=== PATIENT | male | born 1970 | race Caucasian/White ===

== ENCOUNTER → 2018-01-14 | Outpatient (CLI) | payer OTHER ==
[~2018-01-14] MED LIST: CEFA500ER; HYDACE5; NAPR550 PO; Norco 5-325 Ta1 EACH PO; SULTRIDS PO; WARF5
== END ==
LOC: PLD 07:42 → LAB SHORT 07:42
DX: D22.4 Melanocytic nevi of scalp and neck (principal); D22.5 Melanocytic nevi of trunk
CPT/HCPCS: 88305

== ENCOUNTER 2022-08-05 08:08 | Observation (INO) | payer BC ==
[~2022-08-05] VITALS: Ht 177.8 cm; Wt 117.9 kg
[2022-08-05 09:00] LABS: BASOPHILS ABSOLUTE AUTO 0.02 K/mm3 (0.00-0.23); BASOPHILS PERCENT AUTO 0 % (0-2); EOSINOPHILS ABSOLUTE AUTO 0.02 K/mm3 (0.00-0.68); EOSINOPHILS PERCENT AUTO 0 % (0-6); Hematocrit 46.2 % (37.0-53.0); Hemoglobin 16.3 g/dL (13.5-17.5); IMMATURE GRAN ABSOLUTE AUTO 0.03 K/mm3 (0.00-0.10); IMMATURE GRAN PERCENT AUTO 0 % (0-1); LYMPHOCYTES ABSOLUTE AUTO 0.74 K/mm3 (0.84-5.20); LYMPHOCYTES PERCENT AUTO 6 % (21-46); MONOCYTES ABSOLUTE AUTO 1.28 K/mm3 (0.16-1.47); MONOCYTES PERCENT AUTO 11 % (4-13); Mean Corpuscular HGB 29.2 pg (26.0-34.0); Mean Corpuscular HGB Conc 35.3 g/dL (31.5-36.5); Mean Corpuscular Volume 83 fL (80-100); NEUTROPHILS ABSOLUTE AUTO 9.44 K/mm3 (1.96-9.15); NEUTROPHILS PERCENT AUTO 82 % (41-73); Platelet Count 211 K/mm3 (150-400); RDW Coefficient Variation 13.1 % (11.7-14.2); RDW Standard Deviation 39.5 fL (35.1-46.3); Red Blood Cell Count 5.59 M/mm3 (4.30-5.90); White Blood Cell Count 11.53 K/mm3 (4.00-11.30)
[2022-08-05 09:17] LABS: Albumin, Blood 3.5 g/dL (3.4-5.0); Albumin/Globulin Ratio 0.9 (0.8-1.8); Bilirubin, Total 1.2 mg/dL (0.1-1.0); Bun/Creatinine Ratio 11.5 (12.0-20.0); Calcium, Blood 8.8 mg/dL (8.5-10.1); Creatinine, Blood 1.22 mg/dL (0.60-1.20); Globulin, Blood 3.8 g/dL (2.2-4.0); Total Protein, Blood 7.3 g/dL (6.4-8.2)
[2022-08-05 09:57] LABS: Source, Urine Clean Catch
[2022-08-05 10:03] LABS: Appearance, Urine Clear (Clear); Bilirubin, Urine Neg (Neg); Blood, Urine 5+ (Neg); Color, Urine Amber (P-Yellow); Glucose Qualitative, Urine Neg (Neg); Ketones, Urine Neg (Neg); Leukocyte Esterase, Urine Neg (Neg); Nitrite, Urine Neg (Neg); Protein, Urine 2+ (Neg); Urobilinogen, Urine 1+ (Normal)
[2022-08-05 10:09] LABS: White Blood Cells, Urine 0-2 /hpf (0-5)
[2022-08-05 10:12] LABS: Squamous Epithelial Cells Not Seen /hpf (Few)
[2022-08-05 10:13] LABS: Bacteria Few /hpf; Mucus Light (0-Heavy)
[2022-08-05] MEDS ORDERED: ASPIR 8181 M1 PO (10:56)
--- NOTE | 2022-08-05 16:20 | NUR ---
08/05/22 1620 Mahnaz Bunn ANCEF 2G GIVEN TO PATIENT INTRAOPERATIVELY BY ANESTHESIOLOGIST, PABOUBACAR.
--- NOTE | 2022-08-06 07:05 | NUR ---
SUMMARY PT MED X 1 WITH ZOFRAN-NAUSEA RESOLVED.TOLERATED PO NORCO.HOWEVER, REPORTED IT INEFFECTIVE FOR PAIN CONTROL.VERB DILAUDID 0.5 MG EFFECTIVE. VOIDING WITHOUT DIFF.AMBULATORY IN ROOM.
[2022-08-06] MEDS ORDERED: AMOCLA875 PO (13:23)
[2022-08-06] MEDS ORDERED: Norco 5-325 Ta1 EACH PO (13:25)
--- NOTE | 2022-08-06 14:16 | NUR ---
DISCHARGE PT DISCHARGED HOME FROM UNIT AT APROX 1410. PT AND GIVEN WRITTEN AND VERBAL DC INSTRUCTIONS, BOTH VERBALIZED INSTRUCTIONS. RX'S FOR ABX AND PAIN MEDICATION ELECTRONICLY SENT BY DR CARDENAS TO [facility]. IV REMOVED, PT TOLERATED WELL. WC TO CAR.
== END 2022-08-06 14:09 | disposition home or self-care (01) ==
LOC: ER 08:08 → ERHOLD 08:09 → SURS 17:24
PROVIDERS: Physician Assistant; ADMIT Surgery
PROC: 0DTJ4ZZ Resection of Appendix, Percutaneous Endoscopic Approach (ICD-10-PCS; principal; 2022-08-05 13:00)
DX: K35.32 Acute appendicitis with perforation, localized peritonitis, and gangrene, without abscess (principal); Z88.1 Allergy status to other antibiotic agents; Z86.711 Personal history of pulmonary embolism
CPT/HCPCS: 36415; 74177; 80053; 81001; 83690; 85025; 88304; 93005; 93010; 96365; 96365-59; 96366; 96372; 96375; 96376; 99285-25; A9270; G0378; J0295; J0690; J1100; J1170; J1650; J1885; J2250; J2405; J2704; J2710; J2795; J3010; J7120; Q9967

== ENCOUNTER 2023-04-30 20:55 | Inpatient (IN) | payer BC ==
[~2023-04-30] VITALS: Ht 175.3 cm; Wt 115.9 kg
[~2023-04-30 20:55] MED LIST changes: +AMOCLA875 PO; +ASPIR 8181 M1 PO
[2023-04-30 21:25] LABS: BASOPHILS ABSOLUTE AUTO 0.03 K/mm3 (0.00-0.23); BASOPHILS PERCENT AUTO 0 % (0-2); EOSINOPHILS ABSOLUTE AUTO 0.08 K/mm3 (0.00-0.68); EOSINOPHILS PERCENT AUTO 1 % (0-6); Hematocrit 42.3 % (37.0-53.0); Hemoglobin 14.5 g/dL (13.5-17.5); IMMATURE GRAN ABSOLUTE AUTO 0.04 K/mm3 (0.00-0.10); IMMATURE GRAN PERCENT AUTO 0 % (0-1); LYMPHOCYTES ABSOLUTE AUTO 1.53 K/mm3 (0.84-5.20); LYMPHOCYTES PERCENT AUTO 14 % (21-46); MONOCYTES ABSOLUTE AUTO 0.92 K/mm3 (0.16-1.47); MONOCYTES PERCENT AUTO 9 % (4-13); Mean Corpuscular HGB 28.8 pg (26.0-34.0); Mean Corpuscular HGB Conc 34.3 g/dL (31.5-36.5); Mean Corpuscular Volume 84 fL (80-100); Mean Platelet Volume 9.2 fL (9.1-12.4); NEUTROPHILS ABSOLUTE AUTO 7.99 K/mm3 (1.96-9.15); NEUTROPHILS PERCENT AUTO 75 % (41-73); Platelet Count 275 K/mm3 (150-400); RDW Coefficient Variation 13.2 % (11.7-14.2); RDW Standard Deviation 40.5 fL (35.1-46.3); Red Blood Cell Count 5.04 M/mm3 (4.30-5.90); White Blood Cell Count 10.59 K/mm3 (4.00-11.30)
[2023-04-30 21:44] LABS: Albumin, Blood 3.7 g/dL (3.4-5.0); Albumin/Globulin Ratio 1.1 (0.8-1.8); Bilirubin, Total 0.3 mg/dL (0.1-1.0); Bun/Creatinine Ratio 12.6 (12.0-20.0); Calcium, Blood 8.6 mg/dL (8.5-10.1); Creatinine, Blood 1.27 mg/dL (0.60-1.20); Globulin, Blood 3.4 g/dL (2.2-4.0); Potassium, Blood 4.1 mmol/L (3.5-5.5); Total Protein, Blood 7.1 g/dL (6.4-8.2)
[2023-05-01 04:25] VITALS: BP 129/76
[2023-05-01 05:20] LABS: BASOPHILS ABSOLUTE AUTO 0.02 K/mm3 (0.00-0.23); BASOPHILS PERCENT AUTO 0 % (0-2); EOSINOPHILS PERCENT AUTO 1 % (0-6); Hemoglobin 13.6 g/dL (13.5-17.5); IMMATURE GRAN ABSOLUTE AUTO 0.02 K/mm3 (0.00-0.10); IMMATURE GRAN PERCENT AUTO 0 % (0-1); LYMPHOCYTES ABSOLUTE AUTO 1.85 K/mm3 (0.84-5.20); LYMPHOCYTES PERCENT AUTO 23 % (21-46); MONOCYTES ABSOLUTE AUTO 1.05 K/mm3 (0.16-1.47); MONOCYTES PERCENT AUTO 13 % (4-13); Mean Corpuscular Volume 85 fL (80-100); Mean Platelet Volume 9.4 fL (9.1-12.4); NEUTROPHILS ABSOLUTE AUTO 4.98 K/mm3 (1.96-9.15); NEUTROPHILS PERCENT AUTO 62 % (41-73); Platelet Count 250 K/mm3 (150-400); RDW Coefficient Variation 13.2 % (11.7-14.2); RDW Standard Deviation 41.4 fL (35.1-46.3); Red Blood Cell Count 4.69 M/mm3 (4.30-5.90); White Blood Cell Count 8.02 K/mm3 (4.00-11.30)
[2023-05-01 06:00] LABS: Albumin, Blood 3.4 g/dL (3.4-5.0); Albumin/Globulin Ratio 1.1 (0.8-1.8); Bilirubin, Total 0.6 mg/dL (0.1-1.0); Bun/Creatinine Ratio 11.6 (12.0-20.0); Calcium, Blood 8.5 mg/dL (8.5-10.1); Creatinine, Blood 1.21 mg/dL (0.60-1.20); Globulin, Blood 3.2 g/dL (2.2-4.0); Potassium, Blood 3.9 mmol/L (3.5-5.5); Total Protein, Blood 6.6 g/dL (6.4-8.2)
--- NOTE | 2023-05-01 06:19 | NUR ---
ADMIT NOTE PT ADMITTED FROM EMERGENCY DEPT. RECEIVED REPORT FROM VIVIEN. PT A&O, CALM AND COOPERATIVE WITH CARE. PT ORIENTED TO ROOM AND CELL PHONE TAKEN TO NURSES STATION TO CHARGE. PATIENT COMPLAINED OF BACK PAIN, TREATED PER EMAR. HEPARIN INFUSION RATE IS CURRENTLY 18U/KG/HR OR 25.6. BED KEPT IN LOWEST POSITION AND CALL LIGHT WITHIN REACH.
[2023-05-01 07:25] LABS: International Normalized Ratio 1.04; Prothrombin Time Results 10.9 Sec (9.7-11.5)
[2023-05-01 07:33] VITALS: BP 122/69
[2023-05-01 16:17] VITALS: BP 122/77
[2023-05-01] MEDS ORDERED: ELIQUIS5 M2 PO ×2 (17:13→17:16)
[2023-05-01] MEDS ORDERED: CYCL10 PO (17:17)
--- NOTE | 2023-05-01 17:42 | NUR ---
DC ON HOLD PT DEVELOPED A TEMP 101.8 WITH CHILLS AND SHIVERING. ALSO C/O COUGH THAT BRINGS UP BLOOD AND PAIN IN L LAT CHEST THAT RADIATES UP TO L SHOULDER. CALLED & MADE AWARE. ORDERS RECEIVED TO PUT DC HOME ON HOLD, BLOOD CULTURES & CXR FOR AM 05/02/23.
--- NOTE | 2023-05-01 17:55 | NUR ---
SHIFT SUMMARY A&O X 4. IS PLEASANT & COOPERATIVE WITH ALL CARE. IS INDEPENDENT IN THE ROOM FOR RESTROOM USE. RE CHECK OF ORAL TEMP, 99.9. HEP GTT DC'D AND PT ON ORAL ELIQUIS. DC HOME PUT ON HOLD. CXR ORDERED FOR AM AND BLOOD CX'S ORDERED FOR NOW. PT RESTING, BED IN LOW POSITION, CALL LIGHT WITHIN REACH.
[2023-05-01 20:02] VITALS: BP 136/72
--- NOTE | 2023-05-02 03:51 | NUR ---
SHIFT SUMMARY ADMITTED FOR LLL PE W/INFARCT & HEART STRAIN. FULL CODE. FEVER NOTED ON PREVIOUS SHIFT. POSSIBLE PNEUMONIA. IV ANTIB AND ELIQUIS ARE SCHEDULED. FLEXERIL GIVEN THIS SHIFT. PT IS A&O X4, INDEPENDENT IN ROOM, ON RA. BLOOD CULTURES HAVE BEEN SENT TO LAB. HX OF DVTS AND PE.
[2023-05-02 04:23] VITALS: BP 117/73
[2023-05-02 05:02] LABS: Hematocrit 41.1 % (37.0-53.0); Hemoglobin 14.1 g/dL (13.5-17.5); Mean Corpuscular HGB Conc 34.3 g/dL (31.5-36.5); Mean Corpuscular Volume 85 fL (80-100); Mean Platelet Volume 9.5 fL (9.1-12.4); Platelet Count 269 K/mm3 (150-400); RDW Coefficient Variation 13.1 % (11.7-14.2); RDW Standard Deviation 40.6 fL (35.1-46.3); Red Blood Cell Count 4.86 M/mm3 (4.30-5.90); White Blood Cell Count 8.97 K/mm3 (4.00-11.30)
[2023-05-02 05:24] LABS: Bun/Creatinine Ratio 7.6 (12.0-20.0); Calcium, Blood 8.7 mg/dL (8.5-10.1); Creatinine, Blood 1.19 mg/dL (0.60-1.20)
--- NOTE | 2023-05-02 07:15 | NUR ---
PT TO IMAGING VIA W/C
[2023-05-02 07:33] VITALS: BP 126/79
--- NOTE | 2023-05-02 07:35 | NUR ---
PT RETURNED TO ROOM FROM IMAGING
[2023-05-02] MEDS ORDERED: AMOCLA500 PO (14:09)
[2023-05-02] MEDS ORDERED: OXAYDO5 M3 PO (14:09)
--- NOTE | 2023-05-02 14:49 | NUR ---
DISCHARGE DISCHARGE INSTRUCTIONS REVIEWED WITH PT, QUESTIONS/CONCERNS ANSWERED. PT VERBALLY INDICATES UNDERSTANDING OF ALL INSTRUCTIONS RECEIVED. PT AMBULATORY, ESCORTED OUT BY BULK MAIL TECHNICIAN
== END 2023-05-02 14:46 | disposition home or self-care (01) | DRG 176 ==
LOC: ER 20:55 → MEDS 20:56 → ENPENDDIS 05-01 17:23 → MEDS 05-01 18:14
PROVIDERS: Family Medicine; Internal Medicine; Student in an Organized Health Care Education/Training Program; ADMIT Internal Medicine
DX: I26.99 Other pulmonary embolism without acute cor pulmonale (principal); I82.812 Embolism and thrombosis of superficial veins of left lower extremity; R04.2 Hemoptysis; F17.290 Nicotine dependence, other tobacco product, uncomplicated; Z79.82 Long term (current) use of aspirin; Z79.891 Long term (current) use of opiate analgesic; Z86.718 Personal history of other venous thrombosis and embolism; Z79.01 Long term (current) use of anticoagulants; Z86.79 Personal history of other diseases of the circulatory system; Z90.49 Acquired absence of other specified parts of digestive tract; Z86.711 Personal history of pulmonary embolism; Z88.1 Allergy status to other antibiotic agents
CPT/HCPCS: 36415; 71045; 71046; 71260; 80048; 80053; 83880; 84484; 85025; 85027; 85379; 85520; 85610; 93005; 93010; 93306; 93970; 96374-59; 99285-25; A9270; J0696; J1644; J1885; J3010; J7050; Q9967